=== PATIENT | female | born 1995 | race Caucasian/White ===

== ENCOUNTER → 2018-08-16 | Outpatient (CLI) | payer OTHER ==
[2018-08-16 21:14] LABS: Total Protein,CSF 26 mg/dL (12-60)
[2018-08-16 21:21] LABS: Appearance,CSF Clear
[2018-08-16 21:22] LABS: CSF Tube Number 4; CSF Tube Volume 4.5; Nucleated Cells, CSF 1 u/L (0-5); Red Blood Cell,CSF 0 u/L (0-10)
== END | disposition home or self-care (01) ==
LOC: LABWHC1 11:17
PROVIDERS: ATTEND Nurse Practitioner Acute Care
DX: R42 Dizziness and giddiness (principal); R51 Headache; R90.89 Other abnormal findings on diagnostic imaging of central nervous system
CPT/HCPCS: 36415; 82040; 82042; 82784; 83873; 83916; 84157; 87801; 89050

== ENCOUNTER 2019-12-02 12:47 | Emergency (ER) | payer OTHER ==
[2019-12-02 12:53] VITALS: TEMP 97.9
[2019-12-02] MEDS ORDERED: diphenhydrAMINE 50 MG/ML 1 ML VIAL IVP STA (13:45)
[2019-12-02] MEDS ORDERED: SODIUM CHLORIDE 0.9% 1,000 ML IV STA (13:45)
[2019-12-02] MEDS ORDERED: MAGNESIUM SULFATE-D5W PMX 1 GM in DEXTROSE/WATER 1 100ML.BAG IVPB ONE (13:45)
[2019-12-02] MEDS ORDERED: METOCLOPRAMIDE 5 MG/ML 2 ML VIAL IVP STA (13:45)
[2019-12-02] MEDS ORDERED: DEXAMETHASONE SOD PHOSPHATE 10 MG/ML 1 ML VIAL IV STA (13:45)
[2019-12-02] MEDS ORDERED: KETOROLAC 15 MG/ML 1 ML VIAL IVP STA (13:45)
--- NOTE | 2019-12-02 13:45 | ED ---
Headache HPI - General Chief Complaint: Headache Stated Complaint: migraine Mode of arrival: ambulatory Limitations: no limitations - History of Present Illness Initial Comments: Patient is a 24-year-old female past history of migraines who presents emergency room with migraine headache. She states she woke up at 11:00 today with a migraine. Reports that it is behind her right eye. Her chronic headaches are always reported as postocular. He took 2 nurtech today or her headache without improvement in her symptoms. She does see Dr. Parrish. Reports that she's had a full workup including an MRI and lumbar puncture. She does have an appointment coming up next week. States that she frequently comes into urgent care for her headache and will receive a Toradol shot. Denies any visual changes. Does have photophobia and phonophobia. Denies any neck pain or stiffness. No fevers or chills. No sick contacts with similar symptoms. Denies any unilateral numbness or weakness. No other concerning features that are not normal to her chronic headaches. Eyes concern for . There are no other alleviating, precipitating or modifying factors - Related Data Allergies Allergy/AdvReac Type Severity Reaction Status Date / Time No Known Allergies Allergy Verified 12/02/19 12:53 Review of Systems ROS Statement: Those systems with pertinent positive or pertinent negative responses have been documented in the HPI. ROS Other: All systems not noted in ROS Statement are negative. Past Medical History Past Medical History: No Reported History Additional Past Medical History / Comment(s): migraines History of Any Multi-Drug Resistant Organisms: None Reported Past Surgical History: No Surgical Hx Reported Past Psychological History: Depression Smoking Status: Never smoker Past Alcohol Use History: None Reported Past Drug Use History: Marijuana General Exam Limitations: no limitations Course Vital Signs 12/02/19 12/02/19 12/02/19 12:49 13:53 15:04 Temperature 97.9 F 97.9 F Pulse Rate 85 67 Respiratory 16 18 18 Rate Blood Pressure 113/78 130/82 O2 Sat by Pulse 98 98 Oximetry Medical Decision Making - Medical Decision Making Upon arrival the patient was placed into room 12. A thorough history and physical exam was performed. I did recommend peripheral IV placements with a migraine cocktail. Patient originally agreed. When the nurse went into the room to insert the IV the patient changed her mind saying that she only wants a shot of Toradol. This was provided the patient. She was reevaluated reports that she does have improvement in her symptoms at this time. I did continue to recommend a migraine cocktail however the patient refused stating that she felt well enough to go home at this time. She is to follow-up with Dr. Parrish at her scheduled appointment next week. Return to the emergency room for any new or worsening symptoms. Patient agreed and was discharged home in stable condition Disposition Clinical Impression: Migraine Disposition: HOME SELF-CARE Condition: Stable Instructions (If sedation given, give patient instructions): Acute Headache (ED) Additional Instructions: Please follow up with Dr. Parrish. Return to the ED for any new or worsening symptoms. Is patient prescribed a controlled substance at d/c from ED?: No Referrals: Funmilayo Givens DO [Primary Care Provider] - 1-2 days Time of Disposition: 14:57
[2019-12-02 14:33] VITALS: RESP 18
[2019-12-02 15:05] VITALS: BP 130/82; PULSE 67
== END 2019-12-02 15:05 | disposition home or self-care (01) ==
LOC: EC 12:47
DX: G43.909 Migraine, unspecified, not intractable, without status migrainosus (principal)
CPT/HCPCS: 99283; 96374; J1885

== ENCOUNTER 2021-11-29 09:42 | Emergency (ER) | payer OTHER ==
[2021-11-29 09:49] VITALS: RESP 16
--- NOTE | 2021-11-29 10:18 | ED ---
General Adult HPI - General Chief complaint: Urogenital Stated complaint: Lt. lower quad pain Time Seen by Provider: 11/29/21 09:55 Source: patient, EMS, RN notes reviewed, old records reviewed Mode of arrival: EMS Limitations: no limitations - History of Present Illness Initial comments: This is a 26-year-old female who presents emergency Department complaining of some left-sided abdominal pain. Patient states it started yesterday she went to see her doctor she was diagnosed with bacterial vaginosis and given antibiotics. Patient states she did not cloth picker the antibiotics. Patient states she woke up this morning continued to have the discomfort and some nausea so she went to the urgent care where they gave her some Zofran and because she continues to have pain isn't emergency department. Patient states the Zofran is taken away the nausea. Patient denies any diarrhea. Patient denies any dysuria hematuria urinary frequency. Patient denies any vomiting. Patient denies any fever chills. Patient states she's on double so she is not . - Related Data Allergies Allergy/AdvReac Type Severity Reaction Status Date / Time No Known Allergies Allergy Verified 12/02/19 12:53 Review of Systems ROS Statement: Those systems with pertinent positive or pertinent negative responses have been documented in the HPI. ROS Other: All systems not noted in ROS Statement are negative. Past Medical History Past Medical History: No Reported History Additional Past Medical History / Comment(s): migraines History of Any Multi-Drug Resistant Organisms: None Reported Past Surgical History: No Surgical Hx Reported Past Psychological History: Depression Smoking Status: Never smoker Past Alcohol Use History: None Reported Past Drug Use History: Marijuana General Exam - General Exam Comments Initial Comments: GENERAL: Patient is well-developed and well-nourished. Patient is nontoxic and well- hydrated and is in mild distress. ENT: Neck is soft and supple. No significant lymphadenopathy is noted. Oropharynx is clear. Moist mucous membranes. Neck has full range of motion without eliciting any pain. EYES: The sclera were anicteric and conjunctiva were pink and moist. Extraocular movements were intact and pupils were equal round and reactive to light. Eyelids were unremarkable. PULMONARY: Unlabored respirations. Good breath sounds bilaterally. No audible rales rhonchi or wheezing was noted. CARDIOVASCULAR: There is a regular rate and rhythm without any murmurs gallops or rubs. ABDOMEN: Patient has some slight tenderness in the mid left abdominal region there is no tenderness in the lower left or pelvic region. There is no tenderness anywhere else and abdomen there is no rebound or guarding SKIN: Skin is clear with no lesions or rashes and otherwise unremarkable. NEUROLOGIC: Patient is alert and oriented x3. Cranial nerves II through XII are grossly intact. Motor and sensory are also intact. Normal speech, volume and content. Symmetrical smile. MUSCULOSKELETAL: Normal extremities with adequate strength and full range of motion. LYMPHATICS: No significant lymphadenopathy is noted PSYCHIATRIC: Normal psychiatric evaluation. Limitations: no limitations Course Vital Signs 11/29/21 11/29/21 09:43 09:51 Temperature 97.6 F 97.9 F Pulse Rate 78 78 Respiratory 16 16 Rate Blood Pressure 129/87 129/87 O2 Sat by Pulse 100 100 Oximetry Medical Decision Making - Medical Decision Making I went back in the room and reevaluated the patient she was feeling considerably better and no longer nauseated. - Lab Data Result diagrams: 11/29/21 10:32 11/29/21 10:32 Lab Results 11/29/21 11/29/21 11/29/21 Range/Units 10:16 10:18 10:32 WBC 12.5 H (3.8-10.6) k/uL RBC 4.67 (3.80-5.40) m/uL Hgb 14.1 (11.4-16.0) gm/dL Hct 43.3 (34.0-46.0) % MCV 92.7 (80.0-100.0) fL MCH 30.2 (25.0-35.0) pg MCHC 32.5 (31.0-37.0) g/dL RDW 14.4 (11.5-15.5) % Plt Count 370 (150-450) k/uL MPV 7.3 Neutrophils % 81 % Lymphocytes % 13 % Monocytes % 3 % Eosinophils % 2 % Basophils % 1 % Neutrophils # 10.1 H (1.3-7.7) k/uL Lymphocytes # 1.7 (1.0-4.8) k/uL Monocytes # 0.4 (0-1.0) k/uL Eosinophils # 0.2 (0-0.7) k/uL Basophils # 0.1 (0-0.2) k/uL Sodium (137-145) mmol/L Potassium (3.5-5.1) mmol/L Chloride (98-107) mmol/L Carbon Dioxide (22-30) mmol/L Anion Gap mmol/L BUN (7-17) mg/dL Creatinine (0.52-1.04) mg/dL Est GFR (CKD-EPI)AfAm (>60 ml/min/1.73 sqM) Est GFR (CKD-EPI)NonAf (>60 ml/min/1.73 sqM) Glucose (74-99) mg/dL Calcium (8.4-10.2) mg/dL Total Bilirubin (0.2-1.3) mg/dL AST (14-36) U/L ALT (4-34) U/L Alkaline Phosphatase (38-126) U/L Total Protein (6.3-8.2) g/dL Albumin (3.5-5.0) g/dL Urine Color Yellow Urine Appearance Cloudy H (Clear) Urine pH 6.5 (5.0-8.0) Ur Specific [place] 1.027 (1.001-1.035) Urine Protein 1+ H (Negative) Urine Glucose (UA) Negative (Negative) Urine Ketones Negative (Negative) Urine Blood Trace H (Negative) Urine Nitrite Negative (Negative) Urine Bilirubin Negative (Negative) Urine Urobilinogen 3.0 (<2.0) mg/dL Ur Leukocyte Esterase Small H (Negative) Urine RBC 3 (0-5) /hpf Urine WBC 2 (0-5) /hpf Ur Squamous Epith Cells 13 H (0-4) /hpf Amorphous Sediment Occasional H (None) /hpf Urine Bacteria Rare H (None) /hpf Urine Mucus Few H (None) /hpf Urine HCG, Qual Not Detected (Not Detectd) 11/29/21 Range/Units 10:32 WBC (3.8-10.6) k/uL RBC (3.80-5.40) m/uL Hgb (11.4-16.0) gm/dL Hct (34.0-46.0) % MCV (80.0-100.0) fL MCH (25.0-35.0) pg MCHC (31.0-37.0) g/dL RDW (11.5-15.5) % Plt Count (150-450) k/uL MPV Neutrophils % % Lymphocytes % % Monocytes % % Eosinophils % % Basophils % % Neutrophils # (1.3-7.7) k/uL Lymphocytes # (1.0-4.8) k/uL Monocytes # (0-1.0) k/uL Eosinophils # (0-0.7) k/uL Basophils # (0-0.2) k/uL Sodium 139 (137-145) mmol/L Potassium 4.0 (3.5-5.1) mmol/L Chloride 109 H (98-107) mmol/L Carbon Dioxide 18 L (22-30) mmol/L Anion Gap 12 mmol/L BUN 12 (7-17) mg/dL Creatinine 0.87 (0.52-1.04) mg/dL Est GFR (CKD-EPI)AfAm >90 (>60 ml/min/1.73 sqM) Est GFR (CKD-EPI)NonAf >90 (>60 ml/min/1.73 sqM) Glucose 102 H (74-99) mg/dL Calcium 9.2 (8.4-10.2) mg/dL Total Bilirubin 0.4 (0.2-1.3) mg/dL AST 22 (14-36) U/L ALT 17 (4-34) U/L Alkaline Phosphatase 102 (38-126) U/L Total Protein 7.0 (6.3-8.2) g/dL Albumin 4.1 (3.5-5.0) g/dL Urine Color Urine Appearance (Clear) Urine pH (5.0-8.0) Ur Specific [place] (1.001-1.035) Urine Protein (Negative) Urine Glucose (UA) (Negative) Urine Ketones (Negative) Urine Blood (Negative) Urine Nitrite (Negative) Urine Bilirubin (Negative) Urine Urobilinogen (<2.0) mg/dL Ur Leukocyte Esterase (Negative) Urine RBC (0-5) /hpf Urine WBC (0-5) /hpf Ur Squamous Epith Cells (0-4) /hpf Amorphous Sediment (None) /hpf Urine Bacteria (None) /hpf Urine Mucus (None) /hpf Urine HCG, Qual (Not Detectd) Disposition Clinical Impression: Left sided abdominal pain, Nausea Disposition: HOME SELF-CARE Condition: Good Is patient prescribed a controlled substance at d/c from ED?: No Referrals: Young,Willa L, PAC [Primary Care Provider] - 1-2 days Time of Disposition: 11:06
[2021-11-29 10:47] LABS: Basophils # (A) 0.1 k/uL (0-0.2); Basophils % (A) 1 %; Eosinophils # (A) 0.2 k/uL (0-0.7); Eosinophils % (A) 2 %; HCT 43.3 % (34.0-46.0); HGB 14.1 gm/dL (11.4-16.0); Lymphocytes # (A) 1.7 k/uL (1.0-4.8); Lymphocytes % (A) 13 %; MCH 30.2 pg (25.0-35.0); MCHC 32.5 g/dL (31.0-37.0); MCV 92.7 fL (80.0-100.0); Mean Platelet Volume 7.3; Monocytes # (A) 0.4 k/uL (0-1.0); Monocytes % (A) 3 %; Neutrophils # (A) 10.1 k/uL (1.3-7.7); Neutrophils % (A) 81 %; Platelet Count 370 k/uL (150-450); RBC 4.67 m/uL (3.80-5.40); RDW 14.4 % (11.5-15.5); WBC 12.5 k/uL (3.8-10.6)
[2021-11-29 10:55] LABS: Amorphous Sediment,Urine Occasional /hpf; Appearance,Urine Cloudy (Clear); Bacteria,Urine Rare /hpf; Bilirubin,Urine Negative (Negative); Blood,Urine Trace (Negative); Color,Urine Yellow; Glucose,Urine (UA) Negative (Negative); Ketones,Urine Negative (Negative); Leukocyte Esterase,Urine Small (Negative); Mucus,Urine Few /hpf; Nitrite,Urine Negative (Negative); PH, Urine 6.5 (5.0-8.0); Protein,Urine 1+ (Negative); RBC,Urine 3 /hpf (0-5); Specific Gravity,Urine 1.027 (1.001-1.035); Squamous Epithelial Cell,Urine 13 /hpf (0-4); WBC,Urine 2 /hpf (0-5)
[2021-11-29 11:01] LABS: ALT 17 U/L (4-34); AST 22 U/L (14-36); African American GFR (CKD) >90 (>60 ml/min/1.73 sqM); Albumin 4.1 g/dL (3.5-5.0); Alkaline Phosphatase 102 U/L (38-126); Anion Gap 12 mmol/L; Blood Urea Nitrogen 12 mg/dL (7-17); Calcium 9.2 mg/dL (8.4-10.2); Carbon Dioxide 18 mmol/L (22-30); Chloride 109 mmol/L (98-107); Glucose 102 mg/dL (74-99); Non-African American GFR(CKD) >90 (>60 ml/min/1.73 sqM); Sodium 139 mmol/L (137-145); Total Bilirubin 0.4 mg/dL (0.2-1.3)
[2021-11-29] MEDS ORDERED: ONDANSETRON 4 MG ODT STARTER PACK 2 TAB BTL PO STA (11:07)
[2021-11-29 11:15] VITALS: BP 123/82; PULSE 70; TEMP 97.8
== END 2021-11-29 11:11 | disposition home or self-care (01) ==
LOC: EC 09:42
DX: R10.32 Left lower quadrant pain (principal); R11.0 Nausea
CPT/HCPCS: 36415; 80053; 85025; 81001; 81025; 99283; S0119

== ENCOUNTER 2024-04-29 23:35 | Emergency (ER) | payer OTHER ==
[2024-04-29 23:44] VITALS: BP 135/89; PULSE 62; RESP 15; TEMP 97.6
--- NOTE | 2024-04-30 00:26 | ED ---
Back Pain HPI - General Chief Complaint: Back Pain/Injury Stated Complaint: [facility]-back injury Time Seen by Provider: 04/30/24 00:26 Source: patient, RN notes reviewed Limitations: no limitations - History of Present Illness Initial Comments: 28-year-old female presented the ER for evaluation of back pain. 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 Patient attempted to prevent the fall by placing her forearms underneath the patient's armpits. She states she held her patient in this position for a couple of minutes until help arrived to assist her. Patient is reporting a fatigue week pain to her bilateral upper extremities and lumbar back pain. Patient has not taken anything for pain at this time. She denies any radiating pain down bilateral lower extremities, saddle paresthesias, bowel or bladder incontinence/retention, fevers or history of IV drug use. Patient denies any other injuries or complaints at this time. - Related Data Previous Rx's Medication Instructions Recorded Cyclobenzaprine [Flexeril] 10 mg PO HS #10 tab 04/30/24 Lidocaine 5% Patch [Lidoderm] 1 patch TOPICAL DAILY #15 patch 04/30/24 Allergies Allergy/AdvReac Type Severity Reaction Status Date / Time No Known Allergies Allergy Verified 04/29/24 23:44 Review of Systems ROS Statement: Those systems with pertinent positive or pertinent negative responses have been documented in the HPI. ROS Other: All systems not noted in ROS Statement are negative. Past Medical History Past Medical History: No Reported History Additional Past Medical History / Comment(s): migraines History of Any Multi-Drug Resistant Organisms: None Reported Past Surgical History: No Surgical Hx Reported Past Psychological History: Depression Smoking Status: Never smoker Past Alcohol Use History: None Reported Past Drug Use History: Marijuana General Exam Limitations: no limitations General appearance: alert, in no apparent distress Neck exam: Present: normal inspection. Absent: tenderness, meningismus, lymphadenopathy Respiratory exam: Present: normal lung sounds bilaterally. Absent: respiratory distress, wheezes, rales, rhonchi, stridor Cardiovascular Exam: Present: regular rate, normal rhythm, normal heart sounds. Absent: systolic murmur, diastolic murmur, rubs, gallop, clicks Extremities exam: Present: normal inspection, full ROM, normal capillary refill (2+ bilateral radial and DP pulses). Absent: tenderness, pedal edema, joint swelling, calf tenderness Back exam: Present: normal inspection, full ROM, tenderness (Lumbar spine) Neurological exam: Present: alert, oriented X3, CN II-XII intact Skin exam: Present: warm, dry, intact, normal color. Absent: rash Course Vital Signs 04/29/24 23:41 Temperature 97.6 F Pulse Rate 62 Respiratory 15 Rate Blood Pressure 135/89 O2 Sat by Pulse 96 Oximetry Medical Decision Making - Medical Decision Making Was pt. sent in by a medical professional or institution (, PA, CUSTOMER RECORDS DIVISION SUPERVISOR, urgent care, hospital, or fdc...) When possible be specific @ -No Did you speak to anyone other than the patient for history (EMS, parent, family, police, friend...)? What history was obtained from this source @ -No Did you review nursing and triage notes (agree or disagree)? Why? @ -I reviewed and agree with nursing and triage notes Were old charts reviewed (outside hosp., previous admission, EMS record, old EKG, old radiological studies, urgent care reports/EKG's, fdc records)? Report findings @ -No old charts were reviewed Differential Diagnosis (chest pain, altered mental status, abdominal pain women, abdominal pain men, vaginal bleeding, weakness, fever, dyspnea, syncope, headache, dizziness, GI bleed, back pain, seizure, CVA, palpatations, mental health, musculoskeletal)? @ -Differential Back Pain: Strain, zoster, cauda equina syndrome, epidural abscess, vertebral osteomyelitis, discitis, fracture, subluxation, disc herniation, DJD, spinal stenosis, dissection, AAA, pancreatitis, peptic ulcer disease, pyelonephritis, kidney stone, this is not meant to be an all-inclusive list. EKG interpreted by me (3pts min.). @ -None done X-rays interpreted by me (1pt min.). @ -Lumbar spine x-rays interpreted me negative for acute fractures or dislocations. CT interpreted by me (1pt min.). @ -None done U/S interpreted by me (1pt. min.). @ -None done What testing was considered but not performed or refused? (CT, X-rays, U/S, labs)? Why? @ -None What meds were considered but not given or refused? Why? @ -None Did you discuss the management of the patient with other professionals (professionals i.e. , PA, CUSTOMER RECORDS DIVISION SUPERVISOR, lab, RT, psych nurse, social research assistant, office cashier, teacher, international first officer, case management manager)? Give summary @ -No Was smoking cessation discussed for >3mins.? @ -No Was critical care preformed (if so, how long)? @ -No Were there social determinants of health that impacted care today? How? (Homelessness, low income, unemployed, alcoholism, drug addiction, transportation, low edu. Level, literacy, decrease access to med. care, [facility], rehab)? @ -No Was there de-escalation of care discussed even if they declined (Discuss DNR or withdrawal of care, Hospice)? DNR status @ -No What co-morbidities impacted this encounter? (DM, HTN, Smoking, COPD, CAD, Cancer, CVA, ARF, Chemo, Hep., AIDS, mental health diagnosis, sleep apnea, morbid obesity)? @ -None Was patient admitted / discharged? Hospital course, mention meds given and route, prescriptions, significant lab abnormalities, going to OR and other pertinent info. @ -Discharge. 28-year-old female presented to the ER for evaluation of back pain. Upon rooming, history and physical exam completed. Vitals acceptable limits. No red flag back pain symptoms indicate of cauda equina syndrome. Patient is neurovascularly intact. X-rays negative for acute process. Patient given ibuprofen and Flexeril for pain control in the ER with improvement upon reevaluation. Patient stable for discharge at this time with outpatient follow- up to PCP. Flexeril and lidocaine patches prescribed. I advised [id number] ibuprofen and Tylenol for pain control outpatient. Strict return parameters discussed. Patient discharged in stable condition. Patient verbally expressed understanding agree with care plan. Case discussed with ED attending, Dr. Sanford. Undiagnosed new problem with uncertain prognosis? @ -No Drug Therapy requiring intensive monitoring for toxicity (Heparin, Nitro, Insulin, Cardizem)? @ -No Were any procedures done? @ -No Diagnosis/symptom? @ -Musculoskeletal pain Acute, or Chronic, or Acute on Chronic? @ -Acute Uncomplicated (without systemic symptoms) or Complicated (systemic symptoms)? @ -Uncomplicated Side effects of treatment? @ -No Exacerbation, Progression, or Severe Exacerbation? @ -No Poses a threat to life or bodily function? How? (Chest pain, [place], [place], pneumonia, PE, COPD, DKA, ARF, appy, cholecystitis, CVA, Diverticulitis, Homicidal, Suicidal, threat to staff... and all critical care pts) @ -No - Radiology Data Radiology results: report reviewed, image reviewed Disposition Clinical Impression: Musculoskeletal pain Disposition: HOME SELF-CARE Condition: Stable Additional Instructions: Take [id number] ibuprofen and Tylenol for pain control. Take Flexeril as prescribed. Follow-up with PCP. Return to the ER for any new or worsening concerns. Prescriptions: Cyclobenzaprine [Flexeril] 10 mg PO HS #10 tab Lidocaine 5% Patch [Lidoderm] 1 patch TOPICAL DAILY #15 patch Is patient prescribed a controlled substance at d/c from ED?: No Referrals: Willa Hardy PAC [REFERRING] - 1-2 days Time of Disposition: 01:48
[2024-04-30] MEDS: CYCLOBENZAPRINE 10 MG TAB PO STA (00:49)
[2024-04-30] MEDS: IBUPROFEN 600 MG TAB PO STA (00:49)
--- NOTE | 2024-04-30 03:16 | XR ---
EXAM: XR Lumbosacral Spine, 2 or 3 Views CLINICAL HISTORY: ITS.REASON XR Reason: pain TECHNIQUE: Frontal and lateral views of the lumbar spine and sacrum. COMPARISON: No relevant prior studies available. FINDINGS: Vertebrae: No acute fracture. Normal sagittal alignment. Disc spaces: No significant narrowing. Soft tissues: Unremarkable. IMPRESSION: No acute findings.
== END 2024-04-30 01:59 | disposition home or self-care (01) ==
LOC: EC 23:35
DX: M79.18 Myalgia, other site (principal); W19.XXXA Unspecified fall, initial encounter
CPT/HCPCS: 72100; 99283